=== PATIENT | male | born 1950 | race Caucasian/White ===

== ENCOUNTER 2021-11-17 11:13 | Emergency (ER) | payer OTHER ==
[~2021-11-17] VITALS: Ht 180.3 cm; Wt 86.2 kg
[2021-11-17 11:52] LABS: BASOPHILS ABSOLUTE AUTO 0.03 K/mm3 (0.00-0.23); BASOPHILS PERCENT AUTO 0 % (0-2); EOSINOPHILS ABSOLUTE AUTO 0.22 K/mm3 (0.00-0.68); EOSINOPHILS PERCENT AUTO 2 % (0-6); Hematocrit 48.8 % (37.0-53.0); IMMATURE GRAN ABSOLUTE AUTO 0.04 K/mm3 (0.00-0.10); IMMATURE GRAN PERCENT AUTO 0 % (0-1); LYMPHOCYTES ABSOLUTE AUTO 2.36 K/mm3 (0.84-5.20); LYMPHOCYTES PERCENT AUTO 21 % (21-46); MONOCYTES ABSOLUTE AUTO 1.31 K/mm3 (0.16-1.47); MONOCYTES PERCENT AUTO 12 % (4-13); Mean Corpuscular HGB 29.9 pg (26.0-34.0); Mean Corpuscular HGB Conc 34.8 g/dL (31.5-36.5); Mean Corpuscular Volume 86 fL (80-100); Mean Platelet Volume 11.2 fL (9.1-12.4); NEUTROPHILS ABSOLUTE AUTO 7.47 K/mm3 (1.96-9.15); NEUTROPHILS PERCENT AUTO 65 % (41-73); Platelet Count 283 K/mm3 (150-400); RDW Coefficient Variation 12.4 % (11.7-14.2); Red Blood Cell Count 5.68 M/mm3 (4.30-5.90); White Blood Cell Count 11.43 K/mm3 (4.00-11.30)
[2021-11-17 12:29] LABS: Alanine Aminotransfer (ALT/SGP 30 U/L (12-78); Albumin, Blood 3.7 g/dL (3.4-5.0); Alk Phos 104 U/L (50-136); Anion Gap 7 mmol/L (6-16); Aspartate Aminotrans (AST/SGOT 14 U/L (12-37); Bilirubin, Total 0.9 mg/dL (0.1-1.0); Blood Urea Nitrogen 21 mg/dL (8-24); Bun/Creatinine Ratio 22.4 (12.0-20.0); CO2, Blood 21 mmol/L (21-32); Calcium, Blood 8.9 mg/dL (8.5-10.1); Chloride, Blood 112 mmol/L (98-108); Creatinine, Blood 0.94 mg/dL (0.60-1.20); Globulin, Blood 3.7 g/dL (2.2-4.0); Glomerular Filtration Rate >60 (60-); Glucose, Blood 180 mg/dL (70-99); Potassium, Blood 3.7 mmol/L (3.5-5.5); Sodium, Blood 140 mmol/L (136-145); Total Protein, Blood 7.4 g/dL (6.4-8.2)
[2021-11-17] MEDS ORDERED: SPIR25 (12:37)
[2021-11-17] MEDS ORDERED: LISI20 (12:37)
[2021-11-17] MEDS ORDERED: DILT120 PO (16:14)
[2021-11-17] MEDS ORDERED: XARELTO20 MG PO (16:14)
== END 2021-11-17 16:46 | disposition home or self-care (01) ==
LOC: ER 11:13
PROVIDERS: Physician Assistant
DX: I48.0 Paroxysmal atrial fibrillation (principal); I95.9 Hypotension, unspecified; Z88.2 Allergy status to sulfonamides; Z79.899 Other long term (current) drug therapy
CPT/HCPCS: 36415; 71046; 80053; 83690; 83880; 84484; 85025; 92960; 93005; 93010; 99152; 99285-25; A9270; J2704; J7030

== ENCOUNTER 2025-08-24 12:20 | Observation (INO) | payer OTHER ==
[~2025-08-24] VITALS: Ht 180.3 cm; Wt 73.0 kg
[~2025-08-24 12:20] MED LIST: ACET500 PO; ATOR80 PO; Aspir 8181 MG PO; CLOP75 PO; DILT120 PO; DILT120ERA PO; Flonase 0.05% N16 GM; LIDOCAINE HCL 4% TOP; LISI20; LOSA25 PO; METO100ER PO; SPIR25 PO; XARELTO20 MG PO
[2025-08-24 13:07] LABS: BASOPHILS ABSOLUTE AUTO 0.03 K/mm3 (0.00-0.23); BASOPHILS PERCENT AUTO 0 % (0-2); EOSINOPHILS ABSOLUTE AUTO 0.08 K/mm3 (0.00-0.68); EOSINOPHILS PERCENT AUTO 1 % (0-6); Hematocrit 43.6 % (37.0-53.0); Hemoglobin 14.9 g/dL (13.5-17.5); IMMATURE GRAN ABSOLUTE AUTO 0.02 K/mm3 (0.00-0.10); IMMATURE GRAN PERCENT AUTO 0 % (0-1); LYMPHOCYTES ABSOLUTE AUTO 1.26 K/mm3 (0.84-5.20); LYMPHOCYTES PERCENT AUTO 15 % (21-46); MONOCYTES ABSOLUTE AUTO 0.71 K/mm3 (0.16-1.47); MONOCYTES PERCENT AUTO 9 % (4-13); Mean Corpuscular HGB Conc 34.2 g/dL (31.5-36.5); Mean Corpuscular Volume 91 fL (80-100); NEUTROPHILS ABSOLUTE AUTO 6.12 K/mm3 (1.96-9.15); NEUTROPHILS PERCENT AUTO 75 % (41-73); NRBC ABSOLUTE 0.00 K/mm3 (0.00-0.02); NRBC Auto 0.0 /100 WBC (0.0-0.2); Platelet Count 256 K/mm3 (150-400); RDW Coefficient Variation 12.1 % (11.7-14.2); RDW Standard Deviation 40.2 fL (35.1-46.3)
[2025-08-24 13:53] LABS: Alanine Aminotransfer (ALT/SGP 36.0 U/L (12-78); Albumin, Blood 3.9 g/dL (3.4-5.0); Albumin/Globulin Ratio 1.1 (0.8-1.8); Anion Gap 13.0 mmol/L (3-11); Aspartate Aminotrans (AST/SGOT 16.0 U/L (12-37); Bilirubin, Total 0.9 mg/dL (0.1-1.0); Blood Urea Nitrogen 16.0 mg/dL (8-24); CO2, Blood 20.0 mmol/L (21-32); Calcium, Blood 9.6 mg/dL (8.5-10.1); Chloride, Blood 107.0 mmol/L (98-108); Creatinine, Blood 0.64 mg/dL (0.60-1.20); Globulin, Blood 3.4 g/dL (2.2-4.0); Glucose, Blood 329.0 mg/dL (70-99); Potassium, Blood 3.8 mmol/L (3.5-5.5); Sodium, Blood 136.0 mmol/L (136-145); Total Protein, Blood 7.3 g/dL (6.4-8.2)
[2025-08-24] MEDS ORDERED: FLU VACC TS2025(65UP)/MF59C/PF 45 MCG/0.5 ML SYRINGE IM SCH (17:30)
[2025-08-24] MEDS ORDERED: DILT120 PO (18:39)
[2025-08-24] MEDS ORDERED: ELIQUIS5 M2 PO (18:39)
[2025-08-24] MEDS ORDERED: ATOR80 PO (18:40)
[2025-08-24] MEDS ORDERED: METO100ER PO (18:40)
[2025-08-24] MEDS ORDERED: METF500 PO (18:40)
[2025-08-24] MEDS ORDERED: ASPI81CH PO (18:40)
[2025-08-24] MEDS ORDERED: VITAMIN D31250 MC2 (18:42)
[2025-08-24] MEDS ORDERED: Insulin Human Lispro 100 Units/ML 3ML Syringe SC SCH (19:00)
--- NOTE | 2025-08-24 20:00 | NUR ---
RECEIVED REPORT FROM ED RN.
[2025-08-24 20:35] VITALS: BP 123/76
[2025-08-24] MEDS ORDERED: VITAMIN D325 MC3 PO (20:36)
[2025-08-24] MEDS ORDERED: METF500C PO (20:36)
[2025-08-24] MEDS ORDERED: ZADITOR5 M1 BOTHEYES (20:39)
--- NOTE | 2025-08-24 20:47 | NUR ---
PT ARRIVED AT 2030 VIA W/C FROM ED. A/OX4. AMBULATES INDEP AT BEDSIDE. DENIES CP, CHEST PRESSURE. STATES A LITTLE SOB BUT THAT'S NORMAL FOR HIM. ORIENTED PT TO CALL LT SYSTEM. CALL LT IN REACH. WILL PROVIDE CARE T/O SHIFT.
--- NOTE | 2025-08-24 21:58 | NUR ---
PT ALERT AND ORIENTED X 4. INDEP IN RM. TELE IN PLACE, SINUS AT 71. CONTINUES TO DENY CP, CHEST PRESSURE, AND SOB. NO NEEDS AT THIS TIME. CALL LT IN REACH.
[2025-08-24] MEDS ORDERED: NITR.4SL SL (22:08)
--- NOTE | 2025-08-24 23:01 | NUR ---
TRANSFER OF CARE AND REPORT GIVEN TO DEB AMADO.
[2025-08-25 00:10] VITALS: BP 125/72
[2025-08-25 04:09] VITALS: BP 135/75
--- NOTE | 2025-08-25 04:12 | NUR ---
SHIFT SUMMARY: PT IS AOX4 AND A SBA TO BTHROOM. PT DENIES CHEST PN OR PRESSURE. TELLY IN PLACE. PT SLEEPING THROUGH OUT NIGHT. NO ACUTE CHANGES THIS SHIFT.
[2025-08-25 05:25] LABS: BASOPHILS ABSOLUTE AUTO 0.05 K/mm3 (0.00-0.23); BASOPHILS PERCENT AUTO 0 % (0-2); EOSINOPHILS ABSOLUTE AUTO 0.22 K/mm3 (0.00-0.68); EOSINOPHILS PERCENT AUTO 2 % (0-6); Hematocrit 42.7 % (37.0-53.0); Hemoglobin 14.6 g/dL (13.5-17.5); IMMATURE GRAN ABSOLUTE AUTO 0.03 K/mm3 (0.00-0.10); IMMATURE GRAN PERCENT AUTO 0 % (0-1); LYMPHOCYTES ABSOLUTE AUTO 2.70 K/mm3 (0.84-5.20); LYMPHOCYTES PERCENT AUTO 23 % (21-46); MONOCYTES ABSOLUTE AUTO 1.27 K/mm3 (0.16-1.47); MONOCYTES PERCENT AUTO 11 % (4-13); Mean Corpuscular HGB Conc 34.2 g/dL (31.5-36.5); Mean Corpuscular Volume 91 fL (80-100); NEUTROPHILS ABSOLUTE AUTO 7.51 K/mm3 (1.96-9.15); NEUTROPHILS PERCENT AUTO 64 % (41-73); NRBC ABSOLUTE 0.00 K/mm3 (0.00-0.02); NRBC Auto 0.0 /100 WBC (0.0-0.2); Platelet Count 227 K/mm3 (150-400); RDW Coefficient Variation 12.4 % (11.7-14.2); RDW Standard Deviation 41.5 fL (35.1-46.3)
[2025-08-25 05:42] LABS: Alanine Aminotransfer (ALT/SGP 34.0 U/L (12-78); Albumin, Blood 3.7 g/dL (3.4-5.0); Albumin/Globulin Ratio 1.2 (0.8-1.8); Anion Gap 8.0 mmol/L (3-11); Aspartate Aminotrans (AST/SGOT 17.0 U/L (12-37); Bilirubin, Total 0.8 mg/dL (0.1-1.0); Blood Urea Nitrogen 17.0 mg/dL (8-24); CO2, Blood 24.0 mmol/L (21-32); Calcium, Blood 9.1 mg/dL (8.5-10.1); Chloride, Blood 110.0 mmol/L (98-108); Creatinine, Blood 0.72 mg/dL (0.60-1.20); Globulin, Blood 3.2 g/dL (2.2-4.0); Glucose, Blood 142.0 mg/dL (70-99); Magnesium, Blood 2.1 mg/dL (1.6-2.4); Potassium, Blood 3.7 mmol/L (3.5-5.5); Sodium, Blood 138.0 mmol/L (136-145); Total Protein, Blood 6.9 g/dL (6.4-8.2)
[2025-08-25] MEDS ORDERED: Ketotifen Fumarate Opth Soln BOTHEYES PRN (06:35)
[2025-08-25 07:49] VITALS: BP 122/78
[2025-08-25] MEDS ORDERED: Cholecalciferol 1000 Unit Tablet (=25MCG) PO SCH (09:00)
[2025-08-25 11:04] VITALS: BP 122/76
--- NOTE | 2025-08-25 13:37 | NUR ---
AMA DISCHARGE THIS RN WAS ON LUNCH BREAK AND RETURNED TO CARE WHEN INFORMED ABOUT THE NEWS OF PT LEAVING AMA. OPAL RN INFORMED THIS RN THAT OPAL RN DID DC TELE AND IV WITHOUT COMPLICATION. OPAL RN DID ATTEMPT TO CALL PROVIDER TO INFORM OF EVENT, BUT WAS UNABLE TO REACH PROVIDER. THIS RN CALLED MD TO INFORM OF EVENTS, TO WHICH THE PROVIDER WAS RESPONSIVE. THIS RN SPECULATES PT LEFT AMA DUE TO "DID NOT WANT TO WAIT FOR ECHO RESULTS." PT WAS AOX4, COOPERATIVE, ABLE TO MAKE NEEDS KNOWN. PT WAS IND IN ROOM, ON ROOM AIR, TELE WAS DC'D, IV DC'D BY OAPL RN.
--- NOTE | 2025-08-25 14:15 | NUR ---
LATE NOTE PT CAME INTO HALLWAY AND STATED HE WAS READY TO LEAVE AND WASN'T GOING TO WAIT FOR ECHO RESULTS ANY LONGER. REQESTING IV AND TELE TO BE REMOVED. AMA FORM FILLED OUT AND PT EDUCATED ABOUT RISKS OF PREMATURE DISCHARGE. WALKED HIMSELF OFF OF UNIT ACCOMPANIED BY WITH HIS BELONGINGS. ATTEMPTED TO NOTIY DR. CARLISLE WITHOUT SUCCESS. NOTIFIED PRIMARY RN UPON RETURN FROM HIS LUNCH BREAK OF EVENTS THAT OCCURRED.
== END 2025-08-25 13:39 | disposition home or self-care (01) ==
LOC: ER 12:20 → MEDS 12:21 → ENPENDDIS 08-25 13:17 → MEDS 08-25 13:39
PROVIDERS: Physician Assistant; ADMIT Internal Medicine
DX: I21.A1 Myocardial infarction type 2 (principal); I10 Essential (primary) hypertension; E11.9 Type 2 diabetes mellitus without complications; I48.0 Paroxysmal atrial fibrillation; E78.00 Pure hypercholesterolemia, unspecified; I25.10 Atherosclerotic heart disease of native coronary artery without angina pectoris; Z87.891 Personal history of nicotine dependence; Z88.2 Allergy status to sulfonamides; Z88.8 Allergy status to other drugs, medicaments and biological substances; Z79.01 Long term (current) use of anticoagulants; Z79.899 Other long term (current) drug therapy
CPT/HCPCS: 36415; 71046; 80053; 82947; 83690; 83735; 84484; 85025; 93005; 93010; 93306; 94760; 99285-25; A9270; G0378